=== PATIENT | female | born 1970 | race Caucasian/White ===

== ENCOUNTER 2017-10-04 16:39 | Inpatient (IN) | END 2017-10-06 14:01 | disposition home or self-care (01) | DRG 313 ==

== ENCOUNTER 2017-10-27 22:55 | Emergency (ER) | END 2017-10-28 03:01 | disposition home or self-care (01) ==

== ENCOUNTER 2018-01-18 23:24 | Emergency (ER) | END 2018-01-19 04:57 | disposition home or self-care (01) ==

== ENCOUNTER 2018-06-15 00:22 | Emergency (ER) | END 2018-06-15 05:09 | disposition home or self-care (01) ==